=== PATIENT | male | born 1935 | race Caucasian/White ===

== ENCOUNTER 2021-11-13 14:15 | Inpatient (IN) ==
[2021-11-13] MEDS ORDERED: BUMETANIDE 4 MG in SYRINGE 0 ML IV ONE (14:55)
--- NOTE | 2021-11-13 15:13 | XRay Report ---
XR chest 1V portable CLINICAL HISTORY: Dyspnea. COMPARISON STUDY: 10/26/2021 TECHNIQUE: 1 view of the chest FINDINGS: Single frontal view of the chest demonstrates the heart to again be enlarged with cardiac pacer in pl wander. Right-sided Port-A-Cath is also again seen. The lungs are clear of alveolar opacities. Compared to previous examination, there is small right pleural effusion and right basilar atelectasis are agai n seen. There is no evidence for vascular congestion. There is no acute osseous pathology. IMPRESSION: Compared to the previous examination, very small right pleural effusion and right basilar atelectasis are again seen. No confluent alveolar opacities. ACT 112: Negative or not required by law. Electronically signed by: Ezio Theodore M.D. 11/13/2021 3:12 PM
[2021-11-13 15:56] LABS: Platelet Count 21 K/uL (130-400)
[2021-11-13 15:57] LABS: Mean Corpuscular Hgb Conc 32.9 g/dL (32-36)
[2021-11-13 16:00] LABS: Appearance Urine Clear (Clear); Bilirubin Urine Negative (Negative); Blood Urine Negative (Negative); Color Urine Yellow; Glucose Urine UA Negative (Negative); Ketones Urine Negative (Negative); Leukocyte Esterase Urine Negative (Negative); Nitrite Urine Negative (Negative); Protein Urine Negative (Negative); Urobilinogen Urine Negative (Negative)
[2021-11-13 16:04] LABS: Platelet Estimate SIGNIFIC DECREASED (Normal)
[2021-11-13 16:05] LABS: Hematocrit (blood only) 33.4 % (42-52); Mean Corpuscular Hemoglobin 31.7 pg (25-34); Mean Corpuscular Volume 96.3 fL (80-100); RDW Coefficient of Variation 20.1 % (11.5-14.5); Red Blood Count 3.47 M/uL (4.7-6.1); White Blood Count 0.07 K/uL (4.8-10.8)
[2021-11-13 16:24] LABS: Albumin Level 1.7 gm/dl (3.4-5.0); BUN Creatinine Ratio 30.5 (10-20); Calcium 8.1 mg/dl (8.5-10.1); Creatinine Clr Calc Pharmacy 40.9 ml/min; Est GFR (African American) 37.9 ml/min; Est GFR (Non-African American) 32.7 ml/min; Potassium 4.9 mmol/L (3.5-5.1)
--- NOTE | 2021-11-13 16:43 | Emergency Department Note ---
Impression & Plan SOB (shortness of breath), CHF (congestive heart failure), Anasarca ED Provider Note INFORMANT: Patient ED PROVIDER(S): Bernardo Peacock MD CHIEF COMPLAINT: Shortness of breath PLAN: Disposition: Admitted Condition: Good Outpatient prescription management: none Referral: None MEDICAL DECISION MAKING: Patient presented because of worsening shortness of breath and edema. He has known CHF. He is also dealing with pancreatic cancer. He has increased and modified his diuretics at home. He was also given IV diuresis in the office. Despite these measures he is increased his weight and is more symptomatic per family. Blood work was performed. He had pancytopenia. He had mild renal insufficiency noted LFTs are mildly increased. The patient's ECG showed an A. fib with borderline rapid response. No ischemia. The patient had a chest x-ray performed. Mild cardiomegaly and effusion noted. I discussed his presentation with Dr. José with cardiology. He recommended IV treatment with Bumex 4 mg and then additional treatment with Bumex and metolazone as an inpatient given his lack of success with the outpatient regimen. [facility] Patient was evaluated in the ER and admitted for further management. Triage Nursing notes reviewed and agree them. Vital Signs: reviewed and remarkable for no significant abnormalities Differential diagnosis: CHF, reactive airway disease, pneumonia, pneumothorax, COPD, infections, cardiac ischemia, pulmonary embolism, musculoskeletal, gastrointestinal, as well as other pathologies. Diagnostics interpreted by me: ECG: Twelve-lead ECG reveals atrial fibrillation with rapid ventricular response at 105 bpm. Right bundle branch block left posterior fascicular block. No ST elevation or depression. Normal axis. Cardiac Monitoring: Cardiac monitoring ordered by me: The patient was placed on continuous cardiac monitoring and observed. It revealed atrial fibrillation at 108 beats per minute without ectopy or evidence of dysrhythmia. Imaging studies: Chest x-ray as above. HPI: The patient is an 86 year old male who presents to the Emergency Room with complaints of shortness of breath. This started over the last few weeks and is worsening over the last week. The patient also notes the following associated symptoms, significant lower extremity edema, upper extremity edema, weight gain. The patient has tried oral diuretics as well as receiving IV diuresis in the office for relieving factors. Current pain is rated as 0/10. Pt denies LOC, headache, fevers, chills, diaphoresis, visual changes, neck pain, chest pain, nausea, vomiting, abdominal pain, back pain, melena, hematochezia, urinary symptoms, numbness, weakness, lymphadenopathy, rash, or other complaints. ROS: See above HPI for pertinent positives & negatives. A total of 10 systems reviewed and were otherwise negative. PAST MEDICAL HISTORY:See Below , pancreatic cancer, hypertension PAST SURGICAL HISTORY:See Below, FAMILY HISTORY:See Below SOCIAL HISTORY:See Below, retired HOME MEDICATIONS:See Below ALLERGIES:See Below VITALS:See Below PHYSICAL EXAMINATION: GENERAL: Awake, alert, mildly dyspneic-appearing, in no distress HENT: Normocephalic, atraumatic. Oropharynx unremarkable. EYES: Normal conjunctiva. Sclera non-icteric. NECK: Inspection normal. Non-tender. Supple. No nuchal rigidity. FROM. No masses. RESPIRATORY: Clear to auscultation. No wheezes. No rales. Mildly respiratory effort. CARDIAC: Normal rate. Normal rhythm. No murmurs. No rubs. Extremities warm and well perfused. Pulses equal. No JVD. GI: Soft, non-distended. No tenderness to palpation. No rebound or guarding. No masses. RECTAL: Deferred. MUSCULOSKELETAL: Atraumatic. Chest examination reveals no tenderness. The back is symmetrical on inspection without obvious abnormality. There is no CVA tenderness to palpation. No joint edema. Calves are equal size bilaterally and n on-tender. 3-4+ lower extremity edema and 1-2+ upper extremity edema. Chronic renal discoloration. NEURO: Normal sensorium. No sensory or motor deficits noted. SKIN: No rash or jaundice noted. Bernardo Peacock MD Past Med/Surg History Medical History Aortic stenosis Arthritis Atrial fibrillation CAD (coronary artery disease) Chronic low back pain GERD (gastroesophageal reflux disease) History of colon cancer History of prostate cancer HTN (hypertension) Hx of gout Hyperlipidemia Hypothyroidism Iron deficiency anemia Systolic CHF with reduced left ventricular function, NYHA class 2 Surgical History H/O knee surgery History of cataract surgery History of colon resection History of colonoscopy History of coronary artery bypass graft History of tonsillectomy and adenoidectomy History of tooth extraction 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 Family History Father Coronary heart disease Heart disease Mother Coronary heart disease Sister Diabetes Family history of diabetes mellitus Other No family history of adverse response to anesthesia Denies family history of Ovarian cancer Prostate cancer Myocardial infarction Breast cancer Lung cancer Colorectal cancer Stroke Social History Smoking Status: Never smoker Second Hand Exposure: No; Hx Alcohol Use: Yes Alcohol type: beer Alcohol type Comment: 1 beer 5 days a week Alcohol Intake Frequency: 4 or More x per/Week Hx Substance Use: No Preferred Language: Bol[place]ian Visual Impairment: No Limitations Hearing Ability: Normal Verification Specialist Required: No Beliefs That Will Affect Care: None marital status: Current Living Situation: Spouse current occupational status: retired How many Children do You have: 1 Feels Safe at Home: Yes Childhood Exposure to Second-Hand Smoke: No Dental Care, Regularly: Yes Physical Activity Frequency: Daily Seatbelt Use: always Sunscreen Use: No Assistive Devices: Glasses Allergies Allergies Allergy/AdvReac Type Severity Reaction Status Date / Time No Known Drug Allergies Allergy Unknown Verified 11/09/21 11:30 Home Meds Home Medications Medication Instructions Recorded Confirmed multivitamin 1 tab PO QAM 09/06/20 11/09/21 nitroglycerin 0.4 mg sublingual 0.4 mg SUBLINGUAL Q5M PRN 09/06/20 11/09/21 tablet omega-3 fatty acids 1,000 mg 1,000 mg PO QAM 09/06/20 11/09/21 capsule (Fish Oil Concentrate) rivaroxaban 20 mg tablet (Xarelto) 20 mg PO HS 04/22/21 11/09/21 vitamins A,C,G-npzy-jpnojy 14,320 1 cap PO BID 04/22/21 11/09/21 unit-226 mg-200 unit capsule (PreserVision AREDS) acetaminophen 500 mg tablet 1,000 mg PO HS PRN 07/17/21 11/09/21 (Tylenol Extra Strength) gemcitabine 1 gram/26.3 mL (38 IV 09/18/21 11/09/21 mg/mL) intravenous solution paclitaxel-protein bound 100 mg IV 09/18/21 11/09/21 intravenous suspension (Abraxane) [id number] 1 cap PO DAILY cap 10/03/21 11/09/21 36,000-114,000-180,000 unit capsule,delay rel (Creon) ondansetron HCl 4 mg tablet 8 mg PO Q8H PRN tab 10/03/21 11/09/21 (Zofran) carvedilol 6.25 mg tablet 3.125 mg PO BID tab 10/11/21 11/09/21 diphenoxylate-atropine 2.5 2 tab PO QID PRN 11/13/21 11/13/21 mg-0.025 mg tablet loperamide 2 mg capsule 2 mg PO QID PRN 11/13/21 11/13/21 Previous Rx's Medication Instructions Recorded leatha.stocking,knee,reg,xlrg #2 ea 03/08/21 ferrous sulfate 325 mg (65 mg 325 mg PO BID #180 tab 09/07/21 iron) tablet isosorbide mononitrate 30 mg 30 mg PO QAM #90 tab 09/07/21 tablet,extended release 24 hr levothyroxine 100 mcg tablet 100 mcg PO QAM #90 tab 09/18/21 trazodone 50 mg tablet 50 mg PO .COMPLEX #30 tab 09/20/21 atorvastatin 40 mg tablet 40 mg PO QAM #90 tab 10/17/21 metolazone 2.5 mg tablet 2.5 mg PO DAILY PRN #15 tab 10/26/21 potassium chloride 20 mEq 20 meq PO BID #90 tab 10/26/21 tablet,extended release bumetanide 2 mg tablet 2 mg PO BID #120 tab 11/10/21 Results & Data (ED) Vital Signs Vital Signs - 24 hr 11/13/21 14:26 11/13/21 14:38 11/13/21 15:41 Temperature 37.0 C Temperature Source Oral Pulse Rate 105 H Pulse Rate [Left] 108 H Pulse Rhythm [Left] Regular Pulse Strength [Left] Normal Respiratory Rate 16 24 Respiratory Effort / Characteristics Non-Labored Respiratory Depth Normal Respiratory Pattern Regular Blood Pressure 97/59 L Blood Pressure [Right Arm] 104/56 L Blood Pressure Mean 71 Blood Pressure Mean [Right Arm] 72 Blood Pressure Position [Right Arm] Sitting Pulse Oximetry 96 96 95 Oxygen Delivery Method Room Air Room Air Room Air Sepsis Recent Fever Within 48 Hours No Sepsis New/Unexplained Change in Mental Status No Sepsis Action Taken by Nursing No Action Required Laboratory Data Result diagrams: 11/13/21 15:25 11/13/21 15:25 Lab Results 11/13/21 11/13/21 11/13/21 Range/Units 15:25 15:25 Unknown WBC 0.07 L* (4.8-10.8) K/uL RBC 3.47 L (4.7-6.1) M/uL Hgb 11.0 L (14.0-18.0) g/dL Hct 33.4 L (42-52) % MCV 96.3 (80-100) fL MCH 31.7 (25-34) pg MCHC 32.9 (32-36) g/dL RDW Std Deviation 64.0 H (36.4-46.3) fL RDW Coeff of Daljit 20.1 H (11.5-14.5) % Plt Count 21 L* (130-400) K/uL Immature Gran % (Auto) Cancelled Neut % (Auto) Cancelled Lymph % (Auto) Cancelled [place] % (Auto) Cancelled Eos % (Auto) Cancelled Baso % (Auto) Cancelled Neut # (Auto) Cancelled Lymph # (Auto) Cancelled [place] # (Auto) Cancelled Eos # (Auto) Cancelled Baso # (Auto) Cancelled Immature Gran # (Auto) Cancelled Neutrophils % (Manual) Cancelled Band Neutrophils % Cancelled Lymphocytes % (Manual) Cancelled Prolymphocyte % Cancelled Reactive Lymphs % (Man) Cancelled Monocytes % (Manual) Cancelled Eosinophils % (Manual) Cancelled Basophils % (Manual) Cancelled Metamyelocytes % (Man) Cancelled Myelocytes % (Man) Cancelled Promyelocytes % (Man) Cancelled Blast Cells % (Manual) Cancelled Plasma Cell % (Manual) Cancelled Other Cells % Cancelled Nucleated RBC % Cancelled Neutrophils # (Manual) Cancelled Band Neutrophils # Cancelled Total Absolute Neuts Cancelled Lymphocytes # (Manual) Cancelled Prolymphocyte # Cancelled Reactive Lymphs # Cancelled Total Abs Lymphocytes Cancelled Monocytes # (Manual) Cancelled Eosinophils # (Manual) Cancelled Basophils # (Manual) Cancelled Metamyelocytes # (Man) Cancelled Myelocytes # (Manual) Cancelled Promyelocytes # (Man) Cancelled Blast Cells # (Man) Cancelled Plasma Cell # (Manual) Cancelled Other Cells # Cancelled Nucleated RBCs # (Man) Cancelled Hypersegmented Neuts Cancelled Hyposegmented Neuts Cancelled Hypogranular Neuts Cancelled Large Granular Lymphs Cancelled # Lrg Granular Lymphs Cancelled Hairy Cells Cancelled Smudge Cells Cancelled Toxic Granulation Cancelled Toxic Vacuolation Cancelled Dohle Bodies Cancelled Eric Rods Cancelled Platelet Estimate SIGNIFIC DECREASED (Normal) Hypogranular Platelets Cancelled Clumped Platelets Cancelled Giant Platelets Cancelled Platelet Satelliting Cancelled RBC Morphology Cancelled Polychromasia Cancelled Hypochromasia Cancelled Poikilocytosis Cancelled Basophilic Stippling Cancelled Anisocytosis Cancelled Microcytosis Cancelled Macrocytosis Cancelled Spherocytes Cancelled Pappenheimer Bodies Cancelled Sickle Cells Cancelled Target Cells Cancelled Tear Drop Cells Cancelled Ovalocytes Cancelled Stomatocytes Cancelled [place] Bodies Cancelled Echinocytes Cancelled Acanthocytes (Spur) Cancelled Rouleaux Cancelled RBC Agglutinates Cancelled Schistocytes Cancelled RBC Morph Comment Cancelled Sezary Cell Cancelled Sodium 137 (136-145) mmol/L Potassium 4.9 (3.5-5.1) mmol/L Chloride 108 H (98-107) mmol/L Carbon Dioxide 20 L (21-32) mmol/L Anion Gap 9.0 (3-11) BUN 56 H (7-18) mg/dl Creatinine 1.85 H (0.6-1.4) mg/dl Est Cr Clr Drug Dosing 40.9 ml/min Est GFR ( Amer) 37.9 ml/min Est GFR (Non-Af Amer) 32.7 ml/min BUN/Creatinine Ratio 30.5 H (10-20) Glucose 94 (70-99) mg/dl Calcium 8.1 L (8.5-10.1) mg/dl AST 257 H (15-37) U/L ALT 240 H (12-78) Albumin 1.7 L (3.4-5.0) gm/dl Urine Color Yellow Urine Appearance Clear (Clear) Urine pH 5.0 (4.5-7.5) Ur Specific [place] 1.010 (1.000-1.030) Urine Protein Negative (Negative) Urine Glucose (UA) Negative (Negative) Urine Ketones Negative (Negative) Urine Blood Negative (Negative) Urine Nitrite Negative (Negative) Urine Bilirubin Negative (Negative) Urine Urobilinogen Negative (Negative) Ur Leukocyte Esterase Negative (Negative) Administered Medications Discontinued Medications Bumetanide 4 mg/ Syringe 16 mls @ 4 mls/min IV ONE ONE Stop: 11/13/21 14:58 Last Admin: 11/13/21 15:42 Dose: 4 mls/min Documented by: [id number] Imaging Data Radiologist's Impression: Chest X-Ray 11/13/21 14:52 XR chest 1V portable CLINICAL HISTORY: Dyspnea. COMPARISON STUDY: 10/26/2021 TECHNIQUE: 1 view of the chest FINDINGS: Single frontal view of the chest demonstrates the heart to again be enlarged with cardiac pacer in place. Right-sided Port-A-Cath is also again seen. The lungs are clear of alveolar opacities. Compared to previous examination, there is small right pleural effusion and right basilar atelectasis are again seen. There is no evidence for vascular congestion. There is no acute osseous pathology. IMPRESSION: Compared to the previous examination, very small right pleural effusion and right basilar atelectasis are again seen. No confluent alveolar opacities. ACT 112: Negative or not required by law. Electronically signed by: Ezio Theodore M.D. 11/13/2021 3:12 PM Discharge Plan Visit Data Chief Complaint: Shortness of Breath/Dyspnea Stated Complaint: sob ED Provider: Bernardo Peacock Discharge Problem: SOB (shortness of breath), CHF (congestive heart failure), Anasarca Forms Stand Alone Forms: My [facility] Prescriptions Prescriptions: No Action isosorbide mononitrate 30 mg tablet extended release 24 hr 30 mg PO QAM Qty: 90 RF: 3 ferrous sulfate 325 mg (65 mg iron) tablet 325 mg PO BID Qty: 180 RF: 0 trazodone 50 mg tablet 50 mg PO .COMPLEX Qty: 30 RF: 0 atorvastatin 40 mg tablet 40 mg PO QAM Qty: 90 RF: 3 bumetanide 2 mg tablet 2 mg PO BID Qty: 120 RF: 2 levothyroxine 100 mcg tablet 100 mcg PO QAM Qty: 90 RF: 3 gemcitabine 1 gram/26.3 mL (38 mg/mL) solution IV RF: 0 Abraxane 100 mg suspension for reconstitution IV RF: 0 metolazone 2.5 mg tablet 2.5 mg PO DAILY PRN (Reason: weight gain, edema, SOB) Qty: 15 RF: 2 potassium chloride 20 mEq tablet extended release 20 meq PO BID Qty: 90 RF: 3 (DME) leatha.stocking,knee,reg,xlrg Misc See Rx Instructions .ROUTE .MEDSUPPLY Qty: 2 RF: 0 ondansetron HCl [Zofran] 4 mg tablet 8 mg PO Q8H PRN (Reason: nausea and vomiting) RF: 0 Creon 36,000-114,000- 180,000 unit capsule,delayed release(DR/EC) 1 cap PO DAILY RF: 0 omega-3 fatty acids [Fish Oil Concentrate] 1,000 mg capsule 1,000 mg PO QAM RF: 0 multivitamin Tablet 1 tab PO QAM RF: 0 nitroglycerin 0.4 mg tablet, sublingual 0.4 mg sublingual Q5M PRN (Reason: Chest Pain) RF: 0 carvedilol 6.25 mg tablet 3.125 mg PO BID RF: 0 PreserVision AREDS 14,320-226-200 [id number] Capsule 1 cap PO BID RF: 0 Xarelto 20 mg tablet 20 mg PO HS RF: 0 Hold Instructions: for EUS/ERCP acetaminophen [Tylenol Extra Strength] 500 mg Tablet 1,000 mg PO HS PRN (Reason: Pain) RF: 0 diphenoxylate-atropine 2.5-0.025 mg tablet 2 tab PO QID PRN (Reason: Diarrhea) RF: 0 loperamide [Imodium] 2 mg Capsule 2 mg PO QID PRN (Reason: Diarrhea) RF: 0 Referrals Referrals: Maya Mosley CRNP [Primary Care Provider] -
--- NOTE | 2021-11-13 16:47 | History & Physical Report ---
Date of Service November 13, 2021 Assessment & Plan (1) Acute heart failure with preserved ejection fraction: Plan: Increased leg edema and overall weight. Suspect his fluid retention is likely secondary to chemotherapy, venous insufficiency and nutritional status prim arily. Cr slowly increasing with outpatient diuretics therefore unclear how much diuretics will help his currentfluid balance I&Os, daily weights Low Na, fluid restricted diet 1500ml Bumex 4mg IV given in the ER, will continue 4mg IV BID Metolazone 2.5mg PO daily Monitor Cr daily (2) Bilateral leg edema: Plan: As above with generalized anasarca Consult dietary to improve nutrition (3) Elevated transaminase level: Plan: Concerning for obstruction although patient although patient without any RUQ abdominal pain Alternatively from hepatic congestion from overall fluid status Given elevated procalcitonin in setting of possible obstruction and neutropenia will cover for infection with Zosyn pending blood cultures and MRCP (4) Pancytopenia due to antineoplastic chemotherapy: Plan: Reportedly due Neupogen today per patient. Discussed with Dr Vidales and Neupogen 480mcg SQ today and tomorrow recommended No fever but elevated LFTs concerning for obstruction in setting of elevated procalcitonin therefore will cover for infection with Zosyn Will hold Xarelto in setting of thrombocytopenia as discussed with heme/onc (5) Metastasis from pancreatic cancer: Plan: Currently on chemotherapy with gemcitabine and Abraxane. ?takes Neupogen on Mondays and Fridays (6) CAD (coronary artery disease): Plan: Continue Xarelto once platelets increase S/p CABG 3 vessel bypass- 2009 (7) Acute kidney injury: Plan: Cr increased from baseline 0.78 to 1.85 today over the last month with increased diuretics use. Still appears hypervolemic however and moderately dilated IVC on recent echo. Possibly hypotensive induced as also on carvedilol and ISMN UA pending Consider nephrology consult if not improving with diuresis (8) HTN (hypertension): Plan: Hold ISMN given low normal BP and need for increased diuretics Continue carvedilol for rate control Diuretics as above (9) Permanent atrial fibrillation: Plan: Continue Xarelto once platelets increase Continue carvedilol for rate control with hold parameters Plan: VTE Prophylaxis - chemical deferred in setting of thrombocytopenia, SCDs Diet - Low Na, heart healthy, fluid restrict 1500ml Disposition - admit to PCU Admission and Anticipated Discharge Date Admission Date: October 13, 2021 History of Present Illness Chief Complaint: Leg swelling, shortness of breath Primary Care Provider: IZZY Benavides Bernardo Malhotra is an 86 year old male with metastatic pancreatic cancer who presents to the ER with worsening shortness of breath and edema. Leg swelling ongoing for the last few weeks. Intermittent shortness of breath with non- productive but wet sounding cough. Associated weight gain - patient reports around 20lbs. He denies any fever or chills. This has been increasing despite the heart failure clinic increasing his diuretics. Recent TTE 4 days ago showed a moderately dilated inferior vena cava and LVEF 35-40%. He reports compliance with diuretics. Most recently he was given IV Lasix 80mg in the office on October 26 with increasing his Bumex to 4mg PO BID. He had a recent US venous doppler 3 days ago showing no DVT in either extremity. He is currently on chemotherapy and undergoing treatment with palliative Gemcitabine and Abraxane and describes having possible Neupogen injections on Mondays and Fridays. He also reports having intermittent blood transfusions. In the ER his case was discussed with cardiology and recommending Bumex 4mg IV BID and metolazone at this time. He was referred to medicine for admission and ongoing management of congestive heart failure. Allergies Allergy/AdvReac Type Severity Reaction Status Date / Time No Known Drug Allergies Allergy Unknown Verified 11/13/21 17:23 Home Medications Medication Instructions Recorded Confirmed Type multivitamin 1 tab PO BID 09/06/20 11/13/21 History nitroglycerin 0.4 mg sublingual 0.4 mg SUBLINGUAL Q5M PRN 09/06/20 11/13/21 History tablet omega-3 fatty acids 1,000 mg 1,000 mg PO QAM 09/06/20 11/13/21 History capsule (Fish Oil Concentrate) rivaroxaban 20 mg tablet (Xarelto) 20 mg PO QPM 04/22/21 11/13/21 History vitamins A,C,I-wrmz-bunbci 14,320 1 cap PO BID 04/22/21 11/13/21 History unit-226 mg-200 unit capsule (PreserVision AREDS) acetaminophen 500 mg tablet 1,000 mg PO HS PRN 07/17/21 11/13/21 History (Tylenol Extra Strength) ferrous sulfate 325 mg (65 mg 325 mg PO BID #180 tab 09/07/21 11/13/21 Rx iron) tablet isosorbide mononitrate 30 mg 30 mg PO QAM #90 tab 09/07/21 11/13/21 Rx tablet,extended release 24 hr gemcitabine 1 gram/26.3 mL (38 0 mg IV .2XM 09/18/21 11/13/21 History mg/mL) intravenous solution levothyroxine 100 mcg tablet 100 mcg PO QAM #90 tab 09/18/21 11/13/21 Rx paclitaxel-protein bound 100 mg 100 mg IV .2XM 09/18/21 11/13/21 History intravenous suspension (Abraxane) awvunm-dmtkndwn-ozqlyph 2 - 3 cap PO .WITH MEALS cap 10/03/21 11/13/21 History 36,000-114,000-180,000 unit capsule,delay rel (Creon) carvedilol 6.25 mg tablet 3.125 mg PO BID tab 10/11/21 11/13/21 History atorvastatin 40 mg tablet 40 mg PO QAM #90 tab 10/17/21 11/13/21 Rx metolazone 2.5 mg tablet 2.5 mg PO DAILY PRN #15 tab 10/26/21 11/13/21 Rx potassium chloride 20 mEq 20 meq PO BID #90 tab 10/26/21 11/13/21 Rx tablet,extended release bumetanide 2 mg tablet 2 mg PO BID #120 tab 11/10/21 11/13/21 Rx diphenoxylate-atropine 2.5 2 tab PO QID PRN 11/13/21 11/13/21 History mg-0.025 mg tablet ejpiss-tqlzmmay-aoaezxb 1 - 2 cap PO .WITH SNACKS 11/13/21 11/13/21 History 36,000-114,000-180,000 unit capsule,delay rel loperamide 2 mg capsule 2 mg PO QID PRN 11/13/21 11/13/21 History ondansetron 4 mg disintegrating 8 mg PO Q8H PRN 11/13/21 11/13/21 History tablet trazodone 50 mg tablet 25 mg PO .UD 11/13/21 11/13/21 History Past Med/Surg History Medical History Aortic stenosis Arthritis Atrial fibrillation CAD (coronary artery disease) Chronic low back pain GERD (gastroesophageal reflux disease) History of colon cancer History of prostate cancer HTN (hypertension) Hx of gout Hyperlipidemia Hypothyroidism Iron deficiency anemia Systolic CHF with reduced left ventricular function, NYHA class 2 Surgical History H/O knee surgery History of cataract surgery History of colon resection History of colonoscopy History of coronary artery bypass graft History of tonsillectomy and adenoidectomy History of tooth extraction 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 Family History Father Coronary heart disease Heart disease Mother Coronary heart disease Sister Diabetes Family history of diabetes mellitus Other No family history of adverse response to anesthesia Denies family history of Ovarian cancer Prostate cancer Myocardial infarction Breast cancer Lung cancer Colorectal cancer Stroke Social History Smoking Status: Never smoker Second Hand Exposure: No; Do You Dip or Chew Tobacco: No; Tobacco Cessation Education Requested by Patient: No Hx Alcohol Use: No Hx Substance Use: No Preferred Language: Persian Communication Ability: Effective Visual Impairment: No Limitations Hearing Ability: Normal Obstetrics Tech Required: No Beliefs That Will Affect Care: None marital status: Current Living Situation: Spouse current occupational status: retired How many Children do You have: 1 Other Information That Helps Us Care for You: No Feels Safe at Home: Yes Safety Concerns: Feels Safe At This Time Childhood Exposure to Second-Hand Smoke: No Dental Care, Regularly: Yes Physical Activity Frequency: Daily Seatbelt Use: always Sunscreen Use: No Assistive Devices: Denture - Upper and Walker Review of Systems Review of Systems: All systems reviewed & are unremarkable except as noted in HPI & below Gastrointestinal: + diarrhea/loose stools (3 weeks) Physical Exam Constitutional: well developed; + not well nourished and no acute distress Eyes: + anicteric sclerae; normal pupil size ENMT: external ear and nose normal, oropharynx normal Neck: trachea midline, no thyromegaly Respiratory: normal respiratory effort; no respiratory distress Auscultation: + rhonchi (throughotu); no wheezes Cardiovascular: Rate/Rhythm: + tachycardic and + irregularly irregular Heart Sounds: no murmur Extremities: normal capillary refill and + pedal edema (3+ b/l equal to abdomen); no calf tenderness Gastrointestinal (Abdomen): Percussion/Palpation: abdomen soft; abdomen nontender, no guarding and abdomen not rigid Skin: no rashes, warm and dry Neurologic: moves all extremities and awake; not confused Psychiatric: A+Ox3, euthymic affect Genitourinary: no CVA tenderness Results & Data Results & Data ([facility]) Vital Signs (Past 12 Hours) Vital Signs Temp Pulse Pulse Resp BP BP Pulse Ox 11/13/21 15:41 108 H 24 104/56 L 95 11/13/21 14:38 96 11/13/21 14:26 37.0 C 105 H 16 97/59 L 96 Laboratory Results Abnormal lab results 11/13/21 11/13/21 Range/Units 15:25 15:25 WBC 0.07 L* (4.8-10.8) K/uL RBC 3.47 L (4.7-6.1) M/uL Hgb 11.0 L (14.0-18.0) g/dL Hct 33.4 L (42-52) % RDW Std Deviation 64.0 H (36.4-46.3) fL RDW Coeff of Daljit 20.1 H (11.5-14.5) % Plt Count 21 L* (130-400) K/uL Chloride 108 H (98-107) mmol/L Carbon Dioxide 20 L (21-32) mmol/L BUN 56 H (7-18) mg/dl Creatinine 1.85 H (0.6-1.4) mg/dl BUN/Creatinine Ratio 30.5 H (10-20) Calcium 8.1 L (8.5-10.1) mg/dl Total Bilirubin 1.6 H (0.2-1) mg/dl AST 257 H (15-37) U/L ALT 240 H (12-78) Alkaline Phosphatase 179 H (45-117) U/L Troponin I 0.086 H* (0-0.045) ng/ml NT-Pro-B Natriuret Pep 3178 H (0-1800) pg/ml Total Protein 4.6 L (6.4-8.2) gm/dl Albumin 1.7 L (3.4-5.0) gm/dl Albumin/Globulin Ratio 0.6 L (0.9-2) Diagnostic Findings XR chest 1V portable CLINICAL HISTORY: Dyspnea. COMPARISON STUDY: 10/26/2021 TECHNIQUE: 1 view of the chest FINDINGS: Single frontal view of the chest demonstrates the heart to again be enlarged with cardiac pacer in place. Right-sided Port-A-Cath is also again seen. The lungs are clear of alveolar opacities. Compared to previous examination, there is small right pleural effusion and right basilar atelectasis are again seen. There is no evidence for vascular congestion. There is no acute osseous pathology. IMPRESSION: Compared to the previous examination, very small right pleural effusion and right basilar atelectasis are again seen. No confluent alveolar opacities. Medications Administered ER Medications Given: Bumex 4mg IV ECG Indication: SOB/dyspnea Rate (beats per minute): 105 Rhythm: atrial fibrillation Findings: + LPFB and + RBBB Comparison ECG Date: from (July 20, 2021) Change: the following changes noted (atrial fibrillation replaced electronic pacemaker) Code Status & VTE Plan Code Status DNR/DNI VTE Prophylaxis Plan VTE Prophylaxis will be ordered: Yes PG Care Time/CCT Total # of Minutes Spent Total Time Spent with Patient: Total time spent is greater than 50% in coordination of care (as documented) at patient's floor/unit and/or counseling patient: Coding Level of Care Code 58048 Initial Inpt Care Lvl 3 Diagnoses Metastasis from pancreatic cancer C79.9; C25.9 Acute heart failure with preserved ejection fraction I50.31 Elevated transaminase level R74.01 Pancytopenia due to antineoplastic chemotherapy D61.810; T45.1X5A CAD (coronary artery disease) I25.810 Associated angina: without angina Coronary Disease-Associated Artery/Lesion type: bypass graft [place] vs. transplanted heart: [place] heart Bilateral leg edema R60.0 Acute kidney injury N17.9 HTN (hypertension) I10 Permanent atrial fibrillation I48.21 (1) CAD (coronary artery disease) Associated angina: without angina Coronary Disease-Associated Artery/Lesion type: bypass graft [place] vs. transplanted heart: [place] heart Qualified Code(s): I25.810 - Atherosclerosis of coronary artery bypass graft(s) without angina pectoris
[2021-11-13 16:49] LABS: Albumin Globulin Ratio 0.6 (0.9-2); Bilirubin,Total 1.6 mg/dl (0.2-1); Globulin 2.9 gm/dl (2.5-4.0); Total Protein 4.6 gm/dl (6.4-8.2); Troponin I 0.086 ng/ml (0-0.045)
[2021-11-13] MEDS ORDERED: FILGRASTIM 480 MCG/1.6 ML VIAL SQ ONE (19:00)
[2021-11-13] MEDS ORDERED: traZODone HCL 50 MG TAB PO PRN (22:49)
[2021-11-13] MEDS ORDERED: POLYETHYLENE (MIRALAX) 17 GM PACK PO PRN (22:49)
[2021-11-13] MEDS ORDERED: LOPERAMIDE HCL 2 MG CAP PO PRN (22:49)
[2021-11-13] MEDS ORDERED: ACETAMINOPHEN 325 MG TAB PO PRN (22:49)
[2021-11-13] MEDS ORDERED: PANCREAZE (LIPASE 10,500U) CAP PO PRN (22:49)
[2021-11-13] MEDS ORDERED: RIVAROXABAN 20 MG TAB PO SCH (22:49)
[2021-11-13] MEDS ORDERED: PIPERACILL/TAZOBAC CONSULT ACTIVE PRN (22:49)
[2021-11-13] MEDS ORDERED: ONDANSETRON INJ 2 MG/ML 2 ML VIAL IV PRN (22:49)
[2021-11-13] MEDS ORDERED: DIPHENOXYLATE/ATROPINE 2.5/0.025MG TAB PO PRN (22:49)
[2021-11-13] MEDS: ALBUMIN 25% 100 mL 25 GM/100 ML VIAL IV SCH (22:50)
[2021-11-13] MEDS ORDERED: PIPERACILLIN/TAZOBACTAM 3.375 GM in DEXTROSE 5% 100 ML IV ONE (23:30)
[2021-11-14] MEDS: carvediloL 3.125 MG TAB PO SCH ×2 (00:06→09:05)
[2021-11-14] MEDS: POTASSIUM CHLORIDE CRTAB 20 MEQ TABCR PO SCH ×3 (00:08→18:07)
[2021-11-14] MEDS: MULTIVITAMIN TAB PO SCH ×2 (00:08→09:06)
[2021-11-14] MEDS: ALBUMIN 25% 100 mL 25 GM/100 ML VIAL IV SCH (00:23)
[2021-11-14] MEDS ORDERED: HEPARIN 100 UNIT/ML 5ML FLUSH FLUSH PRN (00:35)
[2021-11-14 01:22] LABS: Appearance Urine Clear (Clear); Bilirubin Urine Negative (Negative); Blood Urine Negative (Negative); Color Urine Yellow; Glucose Urine UA Negative (Negative); Ketones Urine Negative (Negative); Leukocyte Esterase Urine Negative (Negative); Nitrite Urine Negative (Negative); Protein Urine Negative (Negative); Specific Gravity Urine 1.009 (1.000-1.030); Urobilinogen Urine Negative (Negative)
[2021-11-14] MEDS: PIPERACILLIN/TAZOBACTAM 3.375 GM in DEXTROSE 5% 100 ML IV SCH ×2 (06:08→17:45)
[2021-11-14] MEDS ORDERED: LEVOTHYROXINE SODIUM 100 MCG TABLET PO SCH (06:30)
[2021-11-14 07:06] LABS: Hematocrit (blood only) 23.5 % (42-52); Hemoglobin 7.7 g/dL (14.0-18.0); Mean Corpuscular Hemoglobin 32.2 pg (25-34); Mean Corpuscular Hgb Conc 32.8 g/dL (32-36); Mean Corpuscular Volume 98.3 fL (80-100); Platelet Count 10 K/uL (130-400); RDW Standard Deviation 66.6 fL (36.4-46.3); Red Blood Count 2.39 M/uL (4.7-6.1); White Blood Count 0.02 K/uL (4.8-10.8)
[2021-11-14 07:08] LABS: Platelet Estimate SIGNIFIC DECREASED (Normal)
[2021-11-14 07:25] LABS: Albumin Level 1.7 gm/dl (3.4-5.0); BUN Creatinine Ratio 30.8 (10-20); Creatinine Clr Calc Pharmacy 37.6 ml/min; Est GFR (African American) 35.4 ml/min; Est GFR (Non-African American) 30.5 ml/min; Potassium 4.5 mmol/L (3.5-5.1)
[2021-11-14 07:27] LABS: Albumin Globulin Ratio 0.6 (0.9-2); Bilirubin,Total 1.5 mg/dl (0.2-1); Globulin 2.7 gm/dl (2.5-4.0); Total Protein 4.4 gm/dl (6.4-8.2)
--- NOTE | 2021-11-14 08:02 | Electrocardiogram Report ---
Test Reason : Blood Pressure : / mmHG Vent. Rate : 105 BPM Atrial Rate : 127 BPM P-R Int : 000 ms QRS Dur : 136 ms QT Int : 406 ms P-R-T Axes : 000 139 016 degrees QTc Int : 536 ms Atrial fibrillation with rapid ventricular response Right bundle branch block Left posterior fascicular block Abnormal ECG When compared with ECG of 20-JUL-2021 08:25, Atrial fibrillation has replaced Electronic ventricular pacemaker Vent. rate has increased BY 45 BPM Confirmed by Cedric José ([id number]) on 11/14/2021 8:02:00 AM Referred By: REFERRED SELF Confirmed By:Cedric José
--- NOTE | 2021-11-14 08:21 | Ultrasound Report ---
US liver LIMITED ABDOMEN CLINICAL HISTORY: Elevated LFTs, known pancreatic mass ?biliary obs. COMPARISON: None. TECHNIQUE: Multiple grayscale and color images of the right upper quadrant of the abdomen. FINDINGS: The study is limited by overlying bowel gas. Additionally, the patient is on B Pap and cou ld not move in unchanged positions for imaging. Pancreas: Only a portion of the head of the pancreas can't be visualized with evidence for a stent in the region of the head of pancreas. Pancreatic duct measures 6 mm. Liver: The liver is heterogeneous in echogenicity There is no evidence for a focal mass. There is no intrahepatic biliary duct dilatation. Gallbladder: The gallbladder is well distended with no evidence of cholelithiasis, wall thickening o r pericholecystic edema. Common Bile Duct: (CBD): It is normal in size measuring 6 mm. However, there does appear to be a st ent in place. Inferior Vena Cava (IVC): The imaged IVC is patent. Right kidney: There is no evidence for hydronephrosis, calculus or gross renal mass. The kidney is n ormal in size. It measures approximately 11.1 x 4.4 x 3.6 cm. Also noted is evidence for right pleural effusion. IMPRESSION: 1. Limited examination with what appears to be a stent within the common bile duct and head of the pa ncreas. 2. There is no evidence for intrahepatic biliary duct dilatation. 3. There is dilatation of the pancreatic duct measuring 6 mm. 4. The liver is heterogeneous in echogenicity characteristic of hepatocellular disease. ACT 112: Negative or not required by law. Electronically signed by: Ezio Theodore M.D. 11/14/2021 8:19 AM
[2021-11-14] MEDS: BUMETANIDE 4 MG in SYRINGE 0 ML IV SCH ×2 (08:28→18:06)
[2021-11-14] MEDS ORDERED: carvediloL 3.125 MG TAB PO SCH (09:00)
[2021-11-14] MEDS ORDERED: FILGRASTIM 300 MCG/ML VIAL SQ SCH (09:00)
[2021-11-14] MEDS ORDERED: OMEGA-3 (PURIFIED FISH OIL) 1 GM CAP PO SCH (09:00)
[2021-11-14] MEDS ORDERED: ATORVASTATIN 40 MG TAB PO SCH (09:00)
[2021-11-14] MEDS ORDERED: FILGRASTIM 480 MCG/1.6 ML VIAL SQ SCH (09:00)
[2021-11-14] MEDS ORDERED: metOLazone 2.5 MG TABLET PO SCH (09:00)
[2021-11-14] MEDS ORDERED: guaiFENesin 600 MG TABCR PO SCH (09:00)
[2021-11-14] MEDS ORDERED: CEROVITE ADV FORMULA TAB PO SCH (09:00)
[2021-11-14] MEDS: PANCREAZE (LIPASE 10,500U) CAP PO SCH ×3 (09:04→18:07)
[2021-11-14] MEDS: FERROUS SULFATE 325 MG TAB PO SCH ×2 (09:05→18:06)
[2021-11-14 09:39] LABS: Troponin I 0.188 ng/ml (0-0.045)
[2021-11-14 09:45] LABS: Base Excess VBG -6.2 mEq/L; Oxygen Saturation VBG 63.7 %; pH VBG 7.21 (7.36-7.41)
--- NOTE | 2021-11-14 10:20 | Gastrointestinal Consultation ---
Date of Consultation November 14, 2021 Assessment & Plan (1) Elevated transaminase level: (2) Pancreatic mass: (3) Metastasis from pancreatic cancer: (4) Pancytopenia due to antineoplastic chemotherapy: Given elevated LFTs, while it could be related to his volume overload, the concern would be an issue with his biliary stents. He is currently on IV antibiotic therapy, which is appropriate, unfortunately, patient is unable to have an MRCP due to pacemaker. Could have a CT scan once more stable, however if he would be unable to even undergo an ERCP at present due to his low platelet count and current respiratory status/bipap use. In this patient with metastatic pancreatic cancer, respiratory failure 2/2 CHF and pancytopenia, I would advise family discussion to shift towards palliative/end-of-life care. Supervising Physician Co-Signing Physician Notes Agree with BRIEN Hoffman as above Patient appears acutely and chronically ill. Prognosis is grim. Continue care as requested by family, recommend end of life care. History of Present Illness Reason for Consultation: Elevated LFTs, Metastatic pancreatic cancer Attending Physician: Tj Garza History of Present Illness Patient is an 86 yo male with an unfortunate history of metastatic pancreatic cancer s/p biliary stenting undergoing chemotherapy. Patient is currently hospitalized for an acute CHF exacerbation. GI has been consulted due to elevated LFTs. Patient's US indicated the known biliary stent and liver consistent with hepatocellular disease. Patient's T bili is 1.5 and AST 22, ALT 205. Patient is unable to have an MRCP to assess the stent/ducts due to his pacemaker. From a broader perspective, patient's platelets are 10,000. Troponin is 0.086. Procalcitonin is elevated and he is severely neutropenic with a WBC count of 20 (0.02). At the time of my visit, he is on bipap at [place] and nursing is reporting that he has been unable to wean. He denies abdominal pain or jaundice. Afebrile at present. His biliary stent was placed by [facility] in July 2021. Allergies Allergy/AdvReac Type Severity Reaction Status Date / Time No Known Drug Allergies Allergy Unknown Verified 11/13/21 17:23 Home Medications Medication Instructions Recorded Confirmed Type multivitamin 1 tab PO BID 09/06/20 11/13/21 History nitroglycerin 0.4 mg sublingual 0.4 mg SUBLINGUAL Q5M PRN 09/06/20 11/13/21 History tablet omega-3 fatty acids 1,000 mg 1,000 mg PO QAM 09/06/20 11/13/21 History capsule (Fish Oil Concentrate) rivaroxaban 20 mg tablet (Xarelto) 20 mg PO QPM 04/22/21 11/13/21 History vitamins A,C,E-krgq-pvaisy 14,320 1 cap PO BID 04/22/21 11/13/21 History unit-226 mg-200 unit capsule (PreserVision AREDS) acetaminophen 500 mg tablet 1,000 mg PO HS PRN 07/17/21 11/13/21 History (Tylenol Extra Strength) ferrous sulfate 325 mg (65 mg 325 mg PO BID #180 tab 09/07/21 11/13/21 Rx iron) tablet isosorbide mononitrate 30 mg 30 mg PO QAM #90 tab 09/07/21 11/13/21 Rx tablet,extended release 24 hr gemcitabine 1 gram/26.3 mL (38 0 mg IV .2XM 09/18/21 11/13/21 History mg/mL) intravenous solution levothyroxine 100 mcg tablet 100 mcg PO QAM #90 tab 09/18/21 11/13/21 Rx paclitaxel-protein bound 100 mg 100 mg IV .2XM 09/18/21 11/13/21 History intravenous suspension (Abraxane) gznqol-ujbdzztx-yuaduad 2 - 3 cap PO .WITH MEALS cap 10/03/21 11/13/21 History 36,000-114,000-180,000 unit capsule,delay rel (Creon) atorvastatin 40 mg tablet 40 mg PO QAM #90 tab 10/17/21 11/13/21 Rx metolazone 2.5 mg tablet 2.5 mg PO DAILY PRN #15 tab 10/26/21 11/13/21 Rx potassium chloride 20 mEq 20 meq PO BID #90 tab 10/26/21 11/13/21 Rx tablet,extended release bumetanide 2 mg tablet 2 mg PO BID #120 tab 11/10/21 11/13/21 Rx diphenoxylate-atropine 2.5 2 tab PO QID PRN 11/13/21 11/13/21 History mg-0.025 mg tablet toeidm-qumsevbn-salfplu 1 - 2 cap PO .WITH SNACKS 11/13/21 11/13/21 History 36,000-114,000-180,000 unit capsule,delay rel loperamide 2 mg capsule 2 mg PO QID PRN 11/13/21 11/13/21 History ondansetron 4 mg disintegrating 8 mg PO Q8H PRN 11/13/21 11/13/21 History tablet trazodone 50 mg tablet 25 mg PO .UD 11/13/21 11/13/21 History Patient History Medical History (Updated 11/14/21 @ 21:32 by Tj Garza) Aortic stenosis Borderline per 02/2021 ECHO Arthritis Atrial fibrillation CAD (coronary artery disease) S/p CABG 3 vessel bypass- 2009 Chronic low back pain GERD (gastroesophageal reflux disease) History of colon cancer SURGERY History of prostate cancer RADIATION [place] ONLY HTN (hypertension) Hx of gout Hyperlipidemia Hypothyroidism Iron deficiency anemia Surgical History H/O knee surgery RT/LEFT History of cataract surgery RT/LEFT History of colon resection History of colonoscopy History of coronary artery bypass graft 3 VESSELS -APPROX 2009- [facility] History of tonsillectomy and adenoidectomy History of tooth extraction Presence of permanent cardiac pacemaker (2014) ST RJ PLACED MARCH 2015 [facility] S/P CABG x 3 3 vessel bypass around 2009 (date & details uncertain) Family History Father Coronary heart disease Heart disease Mother Coronary heart disease Sister Diabetes Family history of diabetes mellitus Other No family history of adverse response to anesthesia Denies family history of Ovarian cancer Prostate cancer Myocardial infarction Breast cancer Lung cancer Colorectal cancer Stroke Social History Smoking Status: Never smoker Second Hand Exposure: No; Hx Alcohol Use: No Hx Substance Use: No Preferred Language: Albanian Communication Ability: Effective Visual Impairment: No Limitations Hearing Ability: Normal Director Of Marketing And Promotions Required: No Beliefs That Will Affect Care: None marital status: Current Living Situation: Spouse current occupational status: retired How many Children do You have: 2 Feels Safe at Home: Yes Childhood Exposure to Second-Hand Smoke: No Dental Care, Regularly: Yes Physical Activity Frequency: Daily Seatbelt Use: always Sunscreen Use: No Assistive Devices: Oxygen - Continuous Review of Systems Constitutional: no fever and no chills Respiratory: + dyspnea Cardiovascular: + edema Gastrointestinal: no abdominal pain Integumentary: no yellowing of the skin Physical Exam Constitutional: + ill appearing Respiratory: + labored breathing Auscultation: + crackles Cardiovascular: Rate/Rhythm: regular rate Extremities: + edema Gastrointestinal (Abdomen): Percussion/Palpation: abdomen soft; abdomen nontender Psychiatric: Orientation: alert and oriented x 3 Results & Data ([facility]) Vital Signs (Past 12 Hours) Vital Signs Temp Pulse Pulse Resp BP Pulse Ox Pulse Ox 11/14/21 08:00 36.8 C 78 20 147/63 H 97 11/14/21 07:49 96 H 32 H 90 11/14/21 03:15 36.8 C 92 H 28 H 75/49 L 89 L 11/14/21 02:04 117 H 22 86/49 L 96 11/14/21 01:54 102 H 26 H 94 11/14/21 00:11 94 11/14/21 00:09 107 H 22 94/60 L 94 11/13/21 22:45 119 H 20 83/49 L 94 PG Care Time/CCT Total # of Minutes Spent Total Time Spent with Patient: Total time spent is greater than 50% in coordination of care (as documented) at patient's floor/unit and/or counseling patient: Coding Level of Care Code 12482 Initial Inpt Care Lvl 3 Diagnoses Elevated transaminase level R74.01 Pancreatic mass K86.89 Metastasis from pancreatic cancer C79.9; C25.9 Pancytopenia due to antineoplastic chemotherapy D61.810; T45.1X5A
[2021-11-14] MEDS ORDERED: SODIUM CHLORIDE 0.9% 250 ML IV PRN ×2 (10:30→10:41)
--- NOTE | 2021-11-14 10:38 | XRay Report ---
XR chest 1V portable CLINICAL HISTORY: hypoxia. COMPARISON STUDY: 11/13/2021 TECHNIQUE: 1 view of the chest FINDINGS: Single frontal view of the chest demonstrates the heart to again be mildly enlarged status post previ ous cardiothoracic surgery and pacer placement. Port-A-Cath is again seen. The lungs are clear of padmini eolar opacities. Compared to the previous study, there has been resolution of small right pleural eff usion and right basilar atelectasis. Minimal pleural fluid in the posterior gutter cannot be excluded . There is no evidence for vascular congestion. There is no acute osseous pathology. IMPRESSION: Interval resolution of small right pleural effusion and right basilar atelectasis as desc ribed. Otherwise, no acute chest disease. ACT 112: Negative or not required by law. Electronically signed by: Ezio Theodore M.D. 11/14/2021 10:36 AM
[2021-11-14 11:09] LABS: Hematocrit (blood only) 22.5 % (42-52); Hemoglobin 7.2 g/dL (14.0-18.0); Mean Corpuscular Hemoglobin 31.6 pg (25-34); Mean Corpuscular Volume 98.7 fL (80-100); Mean Platelet Volume 11.2 fL (7.4-10.4); Platelet Count 9 K/uL (130-400); RDW Coefficient of Variation 20.1 % (11.5-14.5); RDW Standard Deviation 67.3 fL (36.4-46.3); Red Blood Count 2.28 M/uL (4.7-6.1); White Blood Count 0.02 K/uL (4.8-10.8)
[2021-11-14] MEDS ORDERED: ONDANSETRON 4 MG OD TAB SL PRN (11:11)
[2021-11-14] MEDS ORDERED: ONDANSETRON INJ 2 MG/ML 2 ML VIAL IV PRN (11:11)
[2021-11-14] MEDS ORDERED: LACTATED RINGER'S 1,000 ML IV ONE (11:16)
--- NOTE | 2021-11-14 13:03 | Cardiology Consultation ---
Date of Consultation November 14, 2021 Assessment & Plan (1) Acute on chronic systolic (congestive) heart failure: (2) Cardiomyopathy: (3) Anasarca: (4) Metastasis from pancreatic cancer: (5) CAD (coronary artery disease): (6) HTN (hypertension): (7) Acute kidney injury: (8) Presence of permanent cardiac pacemaker: (9) Permanent atrial fibrillation: Acute on Chronic HFrEF: Patient is having progressive symptoms including edema and weight gain despite escalation of his outpatient regimen. This may be multifactorial due to CHF, ongoing chemotherapy, and hypoalbuminemia. Both of his chemo drugs are known to cause peripheral edema. He is now having significant respiratory symptoms and is requiring CPAP therapy. LFTs elevated, possibly from passive congestion vs obstructed biliary stent. GI on board. Minimal urine output overnight following IV Bumex. Would continue to optimize his volume status as BP allows. Currently ordered Bumex 4 mg IV BID and Metolazone. Metolazone currently held due to hypotension. Kidney function seems to be further deteriorating which may limit his treatment options. Unclear if patient would be a candidate for dialysis or if he would want to consider that option given his metastatic disease. Would discontinue beta og to allow for more aggressive diuresis given his significant hypotension and his decompensated state. Hypotension worsening through the day according to the chart at the time of documentation. He was given IVF earlier this am. Would certainly benefit from goals of care conversation/palliative discussion. Prognosis is guarded given metastatic CA and HFrEF. According to the case management notes, family is considering hospice. Cardiomyopathy: Long standing. He was recently having issues with hypotension therefore his HF regimen has been decreased. He remains hypotensive today. Would discontinue Carvedilol as above to allow for aggressive diuresis. Edema: Increasing over the past 4-6 weeks. Possibly a side effect of his chemotherapy (initiated in August). Now with more of an anasarca presentation. Albumin 1.7. Pacemaker: 10+ years of longevity, he recently had to cancel pacer check, this could be deferred for a few months given his current issues. Disposition: Overall prognosis is poor given his multiple comorbidities. Will continue to follow during hospitalization. Today's plan was discussed with Dr. José and Dr. Garza. Multiple complex medical conditions. Supervising Physician Co-Signing Physician Notes Patient known to me from outpatient care over the past year (prior to that he lived in [place]). He had been reasonably well compensated but did have chronic leg edema and borderline low blood pressure at baseline. More recently, his edema has progressed and has been refractory to increasing doses of diuretics. He is also noted to be profoundly anemic, thrombocytopenic, and leukopenic. Of note, his chemotherapy agents (gemcitabine and abraxane) are both noted to have significant rates of edema as a potential side effect. His heart failure appears to be predominantly right-sided, chest x-ray fairly unremarkable. Would recommend the following: Discontinue chemotherapy agents (at least temporarily) Hold vasoactive medications given current hypotension (carvedilol) Continue high-dose IV diuretic (bumetanide 4 mg twice daily) Add metolazone 2.5 mg half hour prior to a.m. bumetanide dose Discontinue fish oil (can increase bleeding, patient thrombocytopenic). Most importantly, tiki discussion regarding extremely poor prognosis and offering option for palliative care may be appropriate at this time. History of Present Illness Attending Physician: Tj Garza History of Present Illness 86-year-old man with CAD (status post three-vessel CABG approximately 2009), permanent atrial fibrillation (carvedilol/rivaroxaban), s/p permanent pacemaker ([employer] placed approximately 2009), HFrEF, cardiomyopathy, who was recently diagnosed with metastatic pancreatic cancer (Aug 2021). Dr. José is his primary optical worker. Recent cardiac studies: 1. 02/03/21 Echo: Moderate LV dilation. Mild LVH. Moderate systolic dysfunction. EF 35-40%. Probably RV systolic dysfunction. Biatrial dilation. Borderline . 2. 11/09/20 Echo: LV moderately dilated. EF 35-40%. Moderate global hypokinesis. RV normal size/function. Mild MR. Moderately dilated IVC. Patient was last evaluated by Dr. José on 10/03/21. He was having significant lower extremity edema and was orthostatic. Lisinopril discontinued. Carvedilol was reduced from 6.25 mg BID to 3.25 mg BID. He was initially evaluated with the heart failure program on 10/11/21. He was having worsening edema dyspnea, and weight gain. Lasix was increased to 80 mg BID. Dry weight estimated 240-245 lb. Patient had minimal response to increased therapy. Symptoms were mostly limited to his lower extremities which was effect ing his ability to get around. He was re-evaluated 10/26/21. CXR with pulmonary vascular congestion and small effusion. He was treated with Lasix 80 mg IV x 1 in the office. Home diuretic transitioned to Bumex 4 mg BID. He was also given Metolazone 2.5 mg PRN. He took one dose. Echocardiogram recommended which shows stable EF, 35-40%. Creatinine increased from .7 to 1.4 with more aggressive diuresis. Advised to hold Metolazone and continue Bumex. Patient's daughter called the office on 11/13/20 to report further decline in his condition. He continued to gain weight despite more aggressive attempts of diuresis. He was having significant weakness and was unable to go for blood work as previously recommended. Due to his ongoing hypotension, rising creatinine, and refractory symptoms he was advised to go to the ED for further evaluation. In the ED patient was noted to have pancytopenia and elevated LFTs. Patient's platelets are 10,000. Troponin is 0.086. Procalcitonin is elevated and he is severely neutropenic with a WBC count of 20 (0.02).CXR with small right pleural effusion and right atelectasis. No alveolar opacities. Patient was treated with IV Bumex in the ED. Patient was resting in bed this morning at the time of my evaluation. He was requiring CPAP therapy so his input was minimal. He was alert and able to nod his head and respond to some of my questions. Telemetry was reviewed- atrial fibrillation in the 90s/100s with occasional PVCs. Patient is undergoing active treatment for metastatic pancreatic cancer. He's having his injections here at [facility]. His oncologist is in [place] and he is getting his chemo there as well. Patient's regimen includes Gemcitabine which lists peripheral edema as a common adverse effect (20%) and Abraxane also causes edema (10-46%). Family is aware that this is palliative chemotherapy and his disease is essentially terminal. Allergies Allergy/AdvReac Type Severity Reaction Status Date / Time No Known Drug Allergies Allergy Unknown Verified 11/13/21 17:23 Home Medications Medication Instructions Recorded Confirmed Type multivitamin 1 tab PO BID 09/06/20 11/13/21 History nitroglycerin 0.4 mg sublingual 0.4 mg SUBLINGUAL Q5M PRN 09/06/20 11/13/21 History tablet omega-3 fatty acids 1,000 mg 1,000 mg PO QAM 09/06/20 11/13/21 History capsule (Fish Oil Concentrate) rivaroxaban 20 mg tablet (Xarelto) 20 mg PO QPM 04/22/21 11/13/21 History vitamins A,C,I-mqxn-vpehok 14,320 1 cap PO BID 04/22/21 11/13/21 History unit-226 mg-200 unit capsule (PreserVision AREDS) acetaminophen 500 mg tablet 1,000 mg PO HS PRN 07/17/21 11/13/21 History (Tylenol Extra Strength) ferrous sulfate 325 mg (65 mg 325 mg PO BID #180 tab 09/07/21 11/13/21 Rx iron) tablet isosorbide mononitrate 30 mg 30 mg PO QAM #90 tab 09/07/21 11/13/21 Rx tablet,extended release 24 hr gemcitabine 1 gram/26.3 mL (38 0 mg IV .2XM 09/18/21 11/13/21 History mg/mL) intravenous solution levothyroxine 100 mcg tablet 100 mcg PO QAM #90 tab 09/18/21 11/13/21 Rx paclitaxel-protein bound 100 mg 100 mg IV .2XM 09/18/21 11/13/21 History intravenous suspension (Abraxane) fbsgsl-ezywhndw-anwcnbs 2 - 3 cap PO .WITH MEALS cap 10/03/21 11/13/21 History 36,000-114,000-180,000 unit capsule,delay rel (Creon) carvedilol 6.25 mg tablet 3.125 mg PO BID tab 10/11/21 11/13/21 History atorvastatin 40 mg tablet 40 mg PO QAM #90 tab 10/17/21 11/13/21 Rx metolazone 2.5 mg tablet 2.5 mg PO DAILY PRN #15 tab 10/26/21 11/13/21 Rx potassium chloride 20 mEq 20 meq PO BID #90 tab 10/26/21 11/13/21 Rx tablet,extended release bumetanide 2 mg tablet 2 mg PO BID #120 tab 11/10/21 11/13/21 Rx diphenoxylate-atropine 2.5 2 tab PO QID PRN 11/13/21 11/13/21 History mg-0.025 mg tablet vzlijl-taivhchh-efsdijt 1 - 2 cap PO .WITH SNACKS 11/13/21 11/13/21 History 36,000-114,000-180,000 unit capsule,delay rel loperamide 2 mg capsule 2 mg PO QID PRN 11/13/21 11/13/21 History ondansetron 4 mg disintegrating 8 mg PO Q8H PRN 11/13/21 11/13/21 History tablet trazodone 50 mg tablet 25 mg PO .UD 11/13/21 11/13/21 History Patient History Medical History (Updated 11/14/21 @ 14:02 by Amara Salcido PA-C) Aortic stenosis Borderline per 02/2021 ECHO Arthritis Atrial fibrillation CAD (coronary artery disease) S/p CABG 3 vessel bypass- 2009 Chronic low back pain GERD (gastroesophageal reflux disease) History of colon cancer SURGERY History of prostate cancer RADIATION [place] ONLY HTN (hypertension) Hx of gout Hyperlipidemia Hypothyroidism Iron deficiency anemia Surgical History H/O knee surgery RT/LEFT History of cataract surgery RT/LEFT History of colon resection History of colonoscopy History of coronary artery bypass graft 3 VESSELS -APPROX 2009- [facility] History of tonsillectomy and adenoidectomy History of tooth extraction Presence of permanent cardiac pacemaker (2014) [facility] PLACED MARCH 2015 IN [facility] S/P CABG x 3 3 vessel bypass around 2009 (date & details uncertain) Family History Father Coronary heart disease Heart disease Mother Coronary heart disease Sister Diabetes Family history of diabetes mellitus Other No family history of adverse response to anesthesia Denies family history of Ovarian cancer Prostate cancer Myocardial infarction Breast cancer Lung cancer Colorectal cancer Stroke Social History Smoking Status: Never smoker Second Hand Exposure: No; Do You Dip or Chew Tobacco: No; Tobacco Cessation Education Requested by Patient: No Hx Alcohol Use: No Hx Substance Use: No Preferred Language: Slovak Communication Ability: Effective Visual Impairment: No Limitations Hearing Ability: Normal Compound Mixer Required: No Beliefs That Will Affect Care: None marital status: Current Living Situation: Spouse current occupational status: retired How many Children do You have: 2 Other Information That Helps Us Care for You: No Feels Safe at Home: Yes Safety Concerns: Feels Safe At This Time Childhood Exposure to Second-Hand Smoke: No Dental Care, Regularly: Yes Physical Activity Frequency: Daily Seatbelt Use: always Sunscreen Use: No Assistive Devices: Walker Physical Exam Physical Exam: General: Ill appearing, on CPAP. Skin: No unusual rash, systemic lesion, or ecchymoses. HEENT: Unremarkable. Neck: Jugular venous pulse at the clavicle at 90 degrees. No carotid bruits. - HJR Lungs: Increased respiratory effort. Clear and equal breath sounds bilaterally. Cardiac: Irregular rhythm with normal S1 and S2, faint heart tones with no murmur, rub, or gallop. Abdomen: Soft nontender no organomegaly, masses, or bruits. Extremities: 2-3+bilateral edema extending into the posterior thighs, intact pulses. +1 upper extremity edema Neurologic: Normal affect, grossly nonfocal. Results & Data ([facility]) Vital Signs (Past 12 Hours) Vital Signs Temp Pulse Pulse Resp BP BP Pulse Ox 11/14/21 12:34 93.7 F L 88 12 55/39 L 11/14/21 12:19 89 L 11/14/21 12:04 84 16 47/35 L 88 L 11/14/21 11:30 83 27 H 90 11/14/21 08:00 98.2 F 78 20 147/63 H 97 11/14/21 07:49 96 H 32 H 90 11/14/21 03:15 98.2 F 92 H 28 H 75/49 L 89 L 11/14/21 02:04 117 H 22 86/49 L 96 11/14/21 01:54 102 H 26 H 94 PG Care Time/CCT Total # of Minutes Spent Total Time Spent with Patient: Total time spent is greater than 50% in coordination of care (as documented) at patient's floor/unit and/or counseling patient: Coding Level of Care Code 60948 Initial Inpt Care Lvl 3 Diagnoses Acute on chronic systolic (congestive) heart failure I50.23 Cardiomyopathy I42.9 Anasarca R60.1 Metastasis from pancreatic cancer C79.9; C25.9 CAD (coronary artery disease) I25.810 Associated angina: without angina Coronary Disease-Associated Artery/Lesion type: bypass graft [place] vs. transplanted heart: [place] heart HTN (hypertension) I10 Acute kidney injury N17.9 Presence of permanent cardiac pacemaker Z95.0 Permanent atrial fibrillation I48.21 (1) CAD (coronary artery disease) Associated angina: without angina Coronary Disease-Associated Artery/Lesion type: bypass graft [place] vs. transplanted heart: [place] heart Qualified Code(s): I25.810 - Atherosclerosis of coronary artery bypass graft(s) without angina pectoris
[2021-11-14] MEDS ORDERED: MoRPHine SULFATE 2 MG/ML CARP IV PRN (16:40)
[2021-11-14] MEDS ORDERED: GLYCOPYRROLATE 0.2 MG/ML VIAL IV PRN (20:06)
--- NOTE | 2021-11-14 20:33 | Hospitalist Progress Note ---
Date of Service November 14, 2021 Assessment & Plan (1) Sepsis: Plan: Possible sepsis, POA Patient documented with hypotension and "difficult to rule out sepsis with elevated procalcitonin." Patient started on Zosyn IV. Risk Factor(s): Chemo induced pancytopenia, procalcitonin 6.37, metastatic cancer Treatment: IV Zosyn, blood cultures Given elevated Procal, h/o pancreatic cancer. Patient may benefit from ERCP. However, patient is currently pancytopenic and given his low platelets, patient is currently not a candidate for surgery or ERCP. Obtained consent for transfusion. Had discussion with patient, and oncologist from [place].\\Patient owever became hypotensive throughout the morning despite transfusion and lactic acid and procal worsened. Given advanced age, advanced cancer, hypotension, and worsening labs which shows lack of perfusion. His opted for focusing on comfort. The patient on a separate visit also agreed. will stop antibiotics. (2) Acute heart failure with preserved ejection fraction: Plan: Increased leg edema and overall weight. Suspect his fluid retention is likely secondary to chemotherapy, venous insufficiency and nutritional status primarily. Cr slowly increasing with outpatient diuretics therefore unclear how much diuretics will help his currentfluid balance I&Os, daily weights Low Na, fluid restricted diet 1500ml Bumex 4mg IV given in the ER, will continue 4mg IV BID Metolazone 2.5mg PO daily Monitor Cr daily (3) Bilateral leg edema: Plan: As above with generalized anasarca Consult dietary to improve nutrition (4) Elevated transaminase level: Plan: Concerning for obstruction although patient although patient without any RUQ abdominal pain Alternatively from hepatic congestion from overall fluid status Given elevated procalcitonin in setting of possible obstruction and neutropenia will cover for infection with Zosyn pending blood cultures and MRCP (5) Pancytopenia due to antineoplastic chemotherapy: Plan: Reportedly due Neupogen today per patient. Discussed with Dr Vidales and Bogdanpogen 480mcg SQ today and tomorrow recommended No fever but elevated LFTs concerning for obstruction in setting of elevated procalcitonin therefore will cover for infection with Zosyn Will hold Xarelto in setting of thrombocytopenia as discussed with heme/onc (6) Metastasis from pancreatic cancer: Plan: Currently on chemotherapy with gemcitabine and Abraxane. ?takes Neupogen on Mondays and Fridays (7) CAD (coronary artery disease): Plan: Continue Xarelto once platelets increase S/p CABG 3 vessel bypass- 2009 (8) Acute kidney injury: Plan: Cr increased from baseline 0.78 to 1.85 today over the last month with increased diuretics use. Still appears hypervolemic however and moderately dilated IVC on recent echo. Possibly hypotensive induced as also on carvedilol and ISMN UA pending Consider nephrology consult if not improving with diuresis (9) HTN (hypertension): Plan: Hold ISMN given low normal BP and need for increased diuretics Continue carvedilol for rate control Diuretics as above (10) Permanent atrial fibrillation: Plan: Continue Xarelto once platelets increase Continue carvedilol for rate control with hold parameters Plan: VTE Prophylaxis - chemical deferred in setting of thrombocytopenia, SCDs Diet - Low Na, heart healthy, fluid restrict 1500ml Disposition - admit to PCU Admission and Anticipated Discharge Date Admission Date: November 13, 2021 Subjective Patient reports feeling fatigued. Patient has required CPAP throughout the night and is now on BIPAP. Review of Systems Review of Systems: All systems reviewed & are unremarkable except as noted in HPI & below Physical Exam Physical Exam: Constitutional: well developed; + not well nourished, on bipap Eyes: + anicteric sclerae; normal pupil size ENMT: external ear and nose normal, oropharynx normal Neck: trachea midline, no thyromegaly Respiratory: normal respiratory effort; no respiratory distress Auscultation: + rhonchi (throughout); no wheezes Cardiovascular: Rate/Rhythm: + tachycardic and + irregularly irregular Heart Sounds: no murmur Extremities: normal capillary refill and + pedal edema (3+ b/l equal to abdomen); no calf tenderness Gastrointestinal (Abdomen): Percussion/Palpation: abdomen soft; abdomen nontender, no guarding and abdomen not rigid Skin: no rashes, warm and dry Neurologic: moves all extremities and awake; not confused Psychiatric: A+Ox3, euthymic affect Genitourinary: no CVA tenderness Results & Data Results & Data ([facility]) Vital Signs (Past 12 Hours) Vital Signs Temp Pulse Resp BP Pulse Ox 11/14/21 18:37 34.4 C L 95 H 16 64/35 L 83 L 11/14/21 16:00 87 11/14/21 15:20 34.4 C L 98 H 16 54/39 L 90 11/14/21 14:54 75 28 H 90 11/14/21 14:20 92 H 22 52/37 L 95 11/14/21 13:53 33.9 C L 11/14/21 13:50 64/31 L 11/14/21 13:35 34.4 C L 91 H 16 64/31 L 90 11/14/21 13:19 34.2 C L 91 H 16 81/53 L 92 11/14/21 13:18 34.2 C L 95 H 16 81/53 L 83 L 11/14/21 12:49 34.3 C L 91 H 14 62/39 L 89 L 11/14/21 12:34 34.3 C L 88 12 55/39 L 11/14/21 12:19 89 L 11/14/21 12:04 84 16 47/35 L 88 L 11/14/21 11:30 83 27 H 90 PG Care Time/CCT Total # of Minutes Spent Total Time Spent with Patient: Total time spent is greater than 50% in coordination of care (as documented) at patient's floor/unit and/or counseling patient: Prolonged Care Time 9:00 to 9:45 11:00 to 11:!5 15:15 to :15:30 17:10 to 17:25 Coding Level of Care Code 26530 Subseq Hosp Care Lvl 3 (25 - SIGNIFICANT, SEPARATELY IDENTIFIABLE ) Diagnoses Acute heart failure with preserved ejection fraction I50.31 Bilateral leg edema R60.0 Elevated transaminase level R74.01 Pancytopenia due to antineoplastic chemotherapy D61.810; T45.1X5A Metastasis from pancreatic cancer C79.9; C25.9 CAD (coronary artery disease) I25.810 Associated angina: without angina Coronary Disease-Associated Artery/Lesion type: bypass graft [place] vs. transplanted heart: [place] heart Acute kidney injury N17.9 HTN (hypertension) I10 Permanent atrial fibrillation I48.21 Sepsis A41.9 Time Spent (min) 90 (1) CAD (coronary artery disease) Associated angina: without angina Coronary Disease-Associated Artery/Lesion type: bypass graft [place] vs. transplanted heart: [place] heart Qualified Code(s): I25.810 - Atherosclerosis of coronary artery bypass graft(s) without angina pectoris
[2021-11-14] MEDS: MoRPHine SULFATE 5 MG/0.25 ML UDP PO PRN ×2 (20:35→22:23)
--- NOTE | 2021-11-14 23:57 | Death Pronouncement Note ---
Date of Service November 14, 2021 Pronouncement Note Admission Date Admission Date: November 13, 2021 Date and Time of Date of : 11/14/21 Time of : 23:24 PCOD Preliminary cause of : Acute on chronic congestive heart failure Contributing Factors (1) Sepsis: (2) Bilateral leg edema: (3) Elevated transaminase level: (4) Pancytopenia due to antineoplastic chemotherapy: (5) Metastasis from pancreatic cancer: (6) CAD (coronary artery disease): (7) Acute kidney injury: (8) HTN (hypertension): (9) Permanent atrial fibrillation: Additional Data Confirmation of : no pulse, no heart sounds and pupils fixed and dilated Family: at bedside Attending physician: Tj Garza Resident Activity Tracking Resident Involvement: Resident Care Provided Care Provided: Adult Hospital Medicine
--- NOTE | 2021-11-16 20:10 | Discharge Summary ---
Date of Service November 14, 2021 Admission HPI Per Admitting Provider Bernardo Malhotra is an 86 year old male with metastatic pancreatic cancer who presents to the ER with worsening shortness of breath and edema. Leg swelling ongoing for the last few weeks. Intermittent shortness of breath with non- productive but wet sounding cough. Associated weight gain - patient reports around 20lbs. He denies any fever or chills. This has been increasing despite the heart failure clinic increasing his diuretics. Recent TTE 4 days ago showed a moderately dilated inferior vena cava and LVEF 35-40%. He reports compliance with diuretics. Most recently he was given IV Lasix 80mg in the office on with increasing his Bumex to 4mg PO BID. He had a recent US venous doppler 3 days ago showing no DVT in either extremity. He is currently on chemotherapy and undergoing treatment with palliative Gemcitabine and Abraxane and describes having possible Neupogen injections on Mondays and Fridays. He also reports having intermittent blood transfusions. In the ER his case was discussed with cardiology and recommending Bumex 4mg IV BID and metolazone at this time. He was referred to medicine for admission and ongoing management of congestive heart failure. Principal Diagnosis sepsis Discharge Exam refer to note Discharge Data Allergies Allergy/AdvReac Type Severity Reaction Status Date / Time No Known Drug Allergies Allergy Unknown Verified 11/13/21 17:23 Consultations 11/13/21 17:36 ED Decision to Admit Stat 11/14/21 08:46 [facility] CHF Program Referral Routine 11/14/21 08:47 Consult Cardiology Routine 11/14/21 09:19 Consult Gastroenterology Routine Ordered Studies 11/14/21 00:00 liver Urgent Hospital Course (1) Sepsis: Possible sepsis, POA Patient documented with hypotension and "difficult to rule out sepsis with elevated procalcitonin." Patient started on Zosyn IV. Risk Factor(s): Chemo induced pancytopenia, procalcitonin 6.37, metastatic cancer Treatment: IV Zosyn, blood cultures Given elevated Procal, h/o pancreatic cancer. Patient may benefit from ERCP. However, patient is currently pancytopenic and given his low platelets, patient is currently not a candidate for surgery or ERCP. Obtained consent for transfusion. Had discussion with patient, and oncologist from [facility].\\Patient owever became hypotensive throughout the morning despite transfusion and lactic acid and procal worsened. Given advanced age, advanced cancer, hypotension, and worsening labs which shows lack of perfusion. His opted for focusing on comfort. The patient on a separate visit also agreed. will stop antibiotics. Patient before midnight on 11/14/21. Please refer to note for exact time of . Below is plan prior to switching to Comfort measures. (2) Acute heart failure with preserved ejection fraction: Increased leg edema and overall weight. Suspect his fluid retention is likely secondary to chemotherapy, venous insufficiency and nutritional status primarily. Cr slowly increasing with outpatient diuretics therefore unclear how much diuretics will help his currentfluid balance I&Os, daily weights Low Na, fluid restricted diet 1500ml Bumex 4mg IV given in the ER, will continue 4mg IV BID Metolazone 2.5mg PO daily Monitor Cr daily (3) Bilateral leg edema: As above with generalized anasarca Consult dietary to improve nutrition (4) Elevated transaminase level: Concerning for obstruction although patient although patient without any RUQ abdominal pain Alternatively from hepatic congestion from overall fluid status Given elevated procalcitonin in setting of possible obstruction and neutropenia will cover for infection with Zosyn pending blood cultures and MRCP (5) Pancytopenia due to antineoplastic chemotherapy: Reportedly due Neupogen today per patient. Discussed with Dr Vidales and Neupogen 480mcg SQ today and tomorrow recommended No fever but elevated LFTs concerning for obstruction in setting of elevated procalcitonin therefore will cover for infection with Zosyn Will hold Xarelto in setting of thrombocytopenia as discussed with heme/onc (6) Metastasis from pancreatic cancer: Currently on chemotherapy with gemcitabine and Abraxane. ?takes Neupogen on Mondays and Fridays (7) CAD (coronary artery disease): Continue Xarelto once platelets increase S/p CABG 3 vessel bypass- 2009 (8) Acute kidney injury: Cr increased from baseline 0.78 to 1.85 today over the last month with increased diuretics use. Still appears hypervolemic however and moderately dilated IVC on recent echo. Possibly hypotensive induced as also on carvedilol and ISMN UA pending Consider nephrology consult if not improving with diuresis (9) HTN (hypertension): Hold ISMN given low normal BP and need for increased diuretics Continue carvedilol for rate control Diuretics as above (10) Permanent atrial fibrillation: Continue Xarelto once platelets increase Continue carvedilol for rate control with hold parameters VTE Prophylaxis - chemical deferred in setting of thrombocytopenia, SCDs Diet - Low Na, heart healthy, fluid restrict 1500ml Disposition - admit to PCU Total Time Total Time Spent Total Time Spent (In Minutes): 5 Discharge Plan Discharge Items Patient Disposition: Other Date/Time: 11/14/21 23:24 Coding Level of Care Code None Diagnoses Sepsis A41.9 Acute heart failure with preserved ejection fraction I50.31 Bilateral leg edema R60.0 Elevated transaminase level R74.01 Pancytopenia due to antineoplastic chemotherapy D61.810; T45.1X5A Metastasis from pancreatic cancer C79.9; C25.9 CAD (coronary artery disease) I25.810 Coronary Disease-Associated Artery/Lesion type: bypass graft [place] vs. transplanted heart: [place] heart Associated angina: without angina Acute kidney injury N17.9 HTN (hypertension) I10 Permanent atrial fibrillation I48.21
== END 2021-11-15 00:28 | disposition expired | DRG 871 ==
LOC: ED 14:15 → SUATTDRO 17:58 → EDINP 17:58 → 2S 23:03 → 3W 11-14 19:55